=== PATIENT | male | born 1960 | race Caucasian/White ===

== ENCOUNTER 2020-06-28 11:04 | Outpatient (REF) | payer BC, SELFPAY ==
[2020-06-28 13:46] LABS: MANUAL DIFF FLAG NO
[2020-06-28 14:06] LABS: Eosinophils Absolute Auto 0.1 X10*3/uL (0.0-0.4); Eosinophils Percent Auto 1.9 % (0-4); Hematocrit 44.6 % (42-52); Hemoglobin 15.1 g/dl (14.0-18.0); Imm Gran Abs Auto 0.01 X10*3/uL (0.00-0.03); Imm Gran Pct Auto 0.3 % (0.0-0.4); Lymphocytes Absolute Auto 1.3 X10*3/uL (1.2-4.9); Lymphocytes Percent Auto 42.6 % (20-40); Mean Corpuscular HGB Conc 33.9 g/dl (31.0-36.0); Mean Corpuscular Hemoglobin 30.6 pg (27.0-33.0); Mean Corpuscular Volume 90.3 fL (80-98); Mean Platelet Volume 10.7 fL (9.4-12.4); Monocytes Absolute Auto 0.2 X10*3/uL (0.1-1.2); Monocytes Percent Auto 7.1 % (2-11); Neutrophils Absolute Auto 1.5 X10*3/uL (2.0-8.3); Neutrophils Percent Auto 47.1 % (45-73); Platelet Count 231 X10*3/uL (160-400); Red Blood Count 4.94 X10*6/uL (4.60-5.80); Red Cell Distribution Width 11.9 % (11.0-16.0); White Blood Count 3.1 X10*3/uL (4.8-10.8)
[2020-06-28 14:14] LABS: Alanine Aminotransferase 16 U/L (0-40); Albumin Level 4.3 g/dL (3.5-5.0); Alkaline Phosphatase 69 U/L (39-117); Anion Gap 12 (12-20); Aspartate Amino Transferase 18 U/L (5-37); Bilirubin Total 0.6 mg/dL (0.0-1.0); Blood Urea Nitrogen 13 mg/dL (9-16); Calcium 8.4 mg/dL (8.4-10.2); Chloride 105 mmol/L (96-108); Cholesterol 215 mg/dL; Estimated Glomerular Filt Rate > 60; Glucose Fasting 95 mg/dL (60-99); HDL Cholesterol 62 mg/dL; LDL Cholesterol Calculated 140 mg/dl; Potassium 4.5 mmol/l (3.3-5.1); Sodium 140 mmol/L (135-145); Triglycerides 69 mg/dL
[2020-06-28 14:20] LABS: Carbon Dioxide 28 mmol/L (22-29)
[2020-06-28 14:39] LABS: Prostate Specific Antigen 0.83 ng/mL (<0.05-4.0)
== END 2020-06-28 11:05 | disposition home or self-care (01) ==
LOC: HO.10HDL 11:04
PROVIDERS: Visit Provider Internal Medicine Medical Oncology
DX: K80.20 Calculus of gallbladder without cholecystitis without obstruction (principal); K21.9 Gastro-esophageal reflux disease without esophagitis; K29.70 Gastritis, unspecified, without bleeding; K81.9 Cholecystitis, unspecified
CPT/HCPCS: 36415; 80053; 80061; 84153; 85025

== ENCOUNTER 2020-07-13 08:26 | Outpatient (REF) | payer BC, SELFPAY ==
--- NOTE | 2020-07-13 | US_ITS ---
EXAMINATION: US ABDOMEN COMPLETE CLINICAL INFORMATION: Gallstones, cholecystitis. COMPARISON: None TECHNIQUE: Real-time imaging of the abdominal viscera. FINDINGS: PANCREAS: The pancreatic head and body are unremarkable. The tail is obscured by gas. ABDOMINAL AORTA: The proximal, mid, and distal segments are normal in caliber. INFERIOR VENA CAVA: Visualized portions are normal. LIVER: The liver is normal in size. The liver contour is normal. Parenchymal echogenicity is normal. Cysts are noted in the right lobe measuring 1.4 cm and 0.9 cm. There is no intrahepatic biliary duct dilatation seen. GALLBLADDER: Normal. The gallbladder is physiologically distended without evidence of stones, sludge, polyps, wall thickening or pericholecystic fluid. COMMON BILE DUCT: Normal in caliber measuring 0.4 cm in diameter. RIGHT KIDNEY: No hydronephrosis. No renal calculi. The kidney measures 11.8 cm in maximum dimension. At the midpole there is a hyperechoic focus measuring 0.4 x 0.7 x 0.5 cm which may represent an angiomyolipoma. LEFT KIDNEY: Normal. No hydronephrosis. No renal calculi or focal parenchymal lesions. The kidney measures 12.2 cm in maximum dimension. SPLEEN: Normal. The spleen measures 9.3 cm in maximum dimension. FREE FLUID: None. US/US abdomen complete IMPRESSION: 1. Unremarkable appearance of the gallbladder. No gallstones. No inflammatory changes. 2. Small cysts in the liver. 3. Probable angiomyolipoma at the midpole of the right kidney.
== END 2020-07-13 08:27 | disposition home or self-care (01) ==
LOC: HO.US 08:26
PROVIDERS: PCP Internal Medicine Medical Oncology; Visit Provider Internal Medicine Medical Oncology
DX: K80.20 Calculus of gallbladder without cholecystitis without obstruction (principal); K29.70 Gastritis, unspecified, without bleeding
CPT/HCPCS: 76700

== ENCOUNTER 2020-10-04 13:34 | Outpatient (REF) | payer BC, SELFPAY ==
[2020-10-04 14:24] LABS: MANUAL DIFF FLAG NO
[2020-10-04 14:28] LABS: Basophils Percent Auto 0.8 % (0-2); Eosinophils Absolute Auto 0.1 X10*3/uL (0.0-0.4); Eosinophils Percent Auto 1.8 % (0-4); Hematocrit 41.3 % (42-52); Hemoglobin 14.4 g/dl (14.0-18.0); Imm Gran Abs Auto 0.01 X10*3/uL (0.00-0.03); Imm Gran Pct Auto 0.3 % (0.0-0.4); Lymphocytes Absolute Auto 1.2 X10*3/uL (1.2-4.9); Lymphocytes Percent Auto 31.3 % (20-40); Mean Corpuscular HGB Conc 34.9 g/dl (31.0-36.0); Mean Corpuscular Hemoglobin 31.5 pg (27.0-33.0); Mean Corpuscular Volume 90.4 fL (80-98); Mean Platelet Volume 10.7 fL (9.4-12.4); Monocytes Absolute Auto 0.3 X10*3/uL (0.1-1.2); Monocytes Percent Auto 7.6 % (2-11); Neutrophils Absolute Auto 2.2 X10*3/uL (2.0-8.3); Neutrophils Percent Auto 58.2 % (45-73); Platelet Count 221 X10*3/uL (160-400); Red Blood Count 4.57 X10*6/uL (4.60-5.80); White Blood Count 3.8 X10*3/uL (4.8-10.8)
[2020-10-04 14:55] LABS: Potassium 4.5 mmol/L (3.3-5.1); Sodium 141 mmol/L (135-145)
[2020-10-04 14:56] LABS: Alanine Aminotransferase 22 U/L (0-40); Albumin Level 4.3 g/dL (3.5-5.0); Alkaline Phosphatase 62 U/L (39-117); Anion Gap 11 (12-20); Aspartate Amino Transferase 17 U/L (5-37); Bilirubin Total 0.7 mg/dL (0.0-1.0); Blood Urea Nitrogen 9 mg/dL (9-16); Calcium 9.1 mg/dL (8.4-10.2); Carbon Dioxide 30 mmol/L (22-29); Chloride 105 mmol/L (96-108); Estimated Glomerular Filt Rate > 60; Glucose Random 96 mg/dL (60-115); Total Protein 6.8 g/dL (6.5-8.0)
[2020-10-04 15:13] LABS: Erythrocyte Sedimentation Rate 2 MM/HR (0-15)
== END 2020-10-04 13:35 | disposition home or self-care (01) ==
LOC: HO.LAB 13:34
PROVIDERS: PCP Internal Medicine Medical Oncology; Visit Provider Internal Medicine Medical Oncology
DX: E78.5 Hyperlipidemia, unspecified (principal); E66.3 Overweight
CPT/HCPCS: 36415; 80053; 85025; 85652

== ENCOUNTER 2020-10-12 07:36 | Outpatient (REF) | payer BC, SELFPAY ==
--- NOTE | ~2020-10-12 | CT_ITS ---
EXAMINATION: CT ABDOMEN WITHOUT AND WITH CONTRAST CLINICAL INFORMATION: Abdominal pain. Renal mass. COMPARISON: Abdominal ultrasound dated 07/13/2020 TECHNIQUE: Contiguous axial thin section helical images of the abdomen were performed before and after the administration of 85 mL of Omnipaque 350 intravenous contrast. The data set was reformatted in the coronal and sagittal planes and reviewed on an independent workstation. This CT examination was performed using dose optimization techniques as appropriate, variously including the following: *Automated exposure control *Adjustment of mA and/or kV according to patient size (this includes techniques or standardized protocols for targeted exams where dose is matched to indication/reason for exam; i.e. extremities or head) *Use of iterative reconstruction technique DLP: 513 mGy-cm FINDINGS: LUNG BASES: Unremarkable. LIVER, GALLBLADDER, AND BILIARY TREE: Normal hepatic size and contour. Inferior right hepatic 1.5 cm simple cyst. Multiple additional hepatic hypodensities, too small to characterize. No enhancing hepatic parenchymal lesion or biliary ductal dilatation. No cholelithiasis. No gallbladder wall thickening or associated inflammatory change. Unremarkable CBD. PANCREAS: Unremarkable. No parenchymal lesion or associated enhancement. No inflammatory change or pancreatic ductal dilatation. SPLEEN: Unremarkable. ADRENAL GLANDS AND KIDNEYS: Unremarkable adrenal glands. Normal renal size, shape, and enhancement. There is a fat density lesion within the lateral midpole of the right kidney measuring up to 0.6 cm and consistent with the previously seen angiomyolipoma. Left mid/lower pole simple-appearing cyst. No renal stone. No hydronephrosis or proximal hydroureter. BOWEL LOOPS: The visualized upper abdominal bowel loops are unremarkable without wall thickening or associated inflammatory change. No upper abdominal bowel obstruction. PERITONEAL CAVITY: No upper abdominal free air or free fluid. No upper abdominal mass or organized fluid collection/abscess. LYMPH NODES: No significant upper abdominal lymphadenopathy. VASCULAR: No abdominal aortic dilatation or dissection. Scattered atherosclerotic calcifications. Unremarkable IVC. BONES: No lytic or blastic osseous lesion. CT/CT abdomen wo/w con IMPRESSION: 1. Redemonstration of an angiomyolipoma within the midpole of the right kidney, not significantly changed when compared to the prior ultrasound. Left renal simple-appearing cyst. No hydronephrosis or nephrolithiasis. 2. Inferior right hepatic simple cyst measuring 1.5 cm. Additional hepatic hypodensities, too small to characterize by CT examination, which also likely represent cysts. No intrahepatic or extrahepatic biliary ductal dilatation.
[2020-10-12] MEDS: iohexoL 350 MG/ML 100 ML INFUS..BTL IV (09:01)
== END 2020-10-12 07:37 | disposition home or self-care (01) ==
LOC: HO.CT 07:36
PROVIDERS: PCP Internal Medicine Medical Oncology; Visit Provider Internal Medicine Medical Oncology
DX: R10.9 Unspecified abdominal pain (principal)
CPT/HCPCS: 74170; Q9967

== ENCOUNTER 2021-06-27 09:51 | Outpatient (REF) | payer BC, SELFPAY ==
[2021-06-27 10:18] LABS: MANUAL DIFF FLAG NO
[2021-06-27 10:21] LABS: Eosinophils Absolute Auto 0.1 X10*3/uL (0.0-0.4); Eosinophils Percent Auto 3.1 % (0-4); Hematocrit 42.1 % (42.0-52.0); Hemoglobin 14.6 g/dl (14.0-18.0); Lymphocytes Absolute Auto 1.1 X10*3/uL (1.2-4.9); Lymphocytes Percent Auto 39.5 % (20-40); Mean Corpuscular HGB Conc 34.7 g/dl (31.0-36.0); Mean Corpuscular Hemoglobin 31.1 pg (27.0-33.0); Mean Corpuscular Volume 89.6 fL (80.0-98.0); Mean Platelet Volume 10.2 fL (9.4-12.4); Monocytes Absolute Auto 0.3 X10*3/uL (0.1-1.2); Monocytes Percent Auto 10.5 % (2-11); Neutrophils Absolute Auto 1.31 x10*3/uL (2.0-8.3); Neutrophils Percent Auto 45.9 % (45-73); Platelet Count 218 X10*3/uL (160-400); Red Cell Distribution Width 12.1 % (11.0-16.0); White Blood Count 2.9 X10*3/uL (4.8-10.8)
[2021-06-27 10:52] LABS: Alanine Aminotransferase 15 U/L (0-40); Albumin Level 4.2 g/dL (3.5-5.0); Alkaline Phosphatase 61 U/L (39-117); Anion Gap 11 (12-20); Aspartate Amino Transferase 18 U/L (5-37); Bilirubin Total 0.7 mg/dL (0.0-1.0); Blood Urea Nitrogen 12 mg/dL (9-16); Calcium 8.9 mg/dL (8.4-10.2); Carbon Dioxide 27 mmol/L (22-29); Chloride 106 mmol/L (96-108); Cholesterol 219 mg/dL; Estimated Glomerular Filt Rate > 60; Glucose Fasting 96 mg/dL (60-99); HDL Cholesterol 49 mg/dL; LDL Cholesterol Calculated 154 mg/dl; Magnesium 2.2 mg/dL (1.6-2.6); Potassium 4.4 mmol/L (3.3-5.1); Sodium 140 mmol/L (135-145); Total Protein 6.8 g/dL (6.5-8.0); Triglycerides 81 mg/dL
== END 2021-06-27 09:52 | disposition home or self-care (01) ==
LOC: HO.10HDL 09:51
PROVIDERS: Visit Provider Internal Medicine Medical Oncology
DX: E78.5 Hyperlipidemia, unspecified (principal); E66.9 Obesity, unspecified
CPT/HCPCS: 36415; 80053; 80061; 83735; 85025

== ENCOUNTER → 2021-07-04 13:32 | Outpatient (REF) | payer BC, SELFPAY ==
--- NOTE | 2021-07-04 13:41 | ECG_ITS ---
Hook-up date: 2021-07-04 15:01:00 Duration: 42:27:00 Test Indications: PALPITATIONS Medications: 222902 QRS complexes 27 Ventricular ectopics which represent <1 % of total QRS comp. 385 Supraventricular ectopics which represent <1 % of total QRS comp. * Paced QRS complexs which represent % of total QRS comp. VENTRICULAR ECTOPY 23 Isolated 0 Bigeminal Cycles 0 Couplets 1 Runs 4 Beats in Runs 4 Beats LONGEST at 182 BPM at 15:39:26 2021-07-04 4 Beats FASTEST at 182 BPM at 15:39:26 2021-07-04 SUPRAVENTRICULAR ECTOPY 186 Isolated 35 Couplets 34 Runs 129 Beats in Runs 9 Beats LONGEST at 168 BPM at 19:13:02 2021-07-04 3 Beats FASTEST at 220 BPM at 21:07:09 2021-07-04 HEART RATES 43 MIN at 07:35:14 2021-07-05 74 AVG 174 MAX at 21:07:09 2021-07-04 LONGEST RR 1.6240 secs at 01:31:24 2021-07-05 S-T LEVELS Channel 1 - 128 mm at 15:01:00 2021-07-04 - 128 mm at 15:01:00 2021-07-04 Channel 2 - 128 mm at 15:01:00 2021-07-04 - 128 mm at 15:01:00 2021-07-04 Channel 3 - 128 mm at 03:42:01 -- - 128 mm at 03:42:01 Basic rhythm Normal sinus rhythm No long pause or profound bradycardia Rare Premature ventricular complexes One 4 neat WCT at 182 bpm, could be NSVT or SVT with aberrancy Multiple short bursts of SVEs c/w SVT, longest 9 beats Patient reported events of hard beats correlated with NSR Referred By: Evgeny Molina Overread By: GUS ORELLANA MD
== END ==
LOC: HO.CARD 13:32
PROVIDERS: Visit Provider Internal Medicine Medical Oncology
DX: R00.2 Palpitations (principal)
CPT/HCPCS: 93225; 93226

== ENCOUNTER → 2022-11-14 08:27 | Outpatient (BNVA) | payer BC, SELFPAY | PROVIDERS: PCP Internal Medicine Medical Oncology; Visit Provider Physician Assistant | DX: Z13.89 Encounter for screening for other disorder (principal) ==

== ENCOUNTER 2023-02-13 07:20 | Day surgery (SDC) | payer BC, SELFPAY ==
--- NOTE | 2023-02-12 10:47 | HO.ANESPROP2 ---
Documented by User: Larisa Fowler NP 02/12/23 10:47 HPI - Anesthesia Eval Consult details Narrative: 62yo M for Colonoscopy [facility] Active Problems Active Problems: All Active Problems (Updated 11/14/22 @ 08:36 by Nhi Florse PA-C) Encounter for screening colonoscopy (Acute) Past Medical History Medical History (Updated 02/13/23 @ 08:36 by Fior Melchor, JANELL) Afib Anxiety Elevated cholesterol History of cardioversion DANIEL (obstructive sleep apnea) Family History Family History Father Lung cancer Emphysema lung Mother CVD (cardiovascular disease) Hyperlipemia Surgical History Surgical History History of ankle surgery Hx of colonoscopy Hx of oral surgery Social History Social History (Updated 11/14/22 @ 08:44 by Nhi Flores PA-C) Household Members Other:: single- Patient Tobacco Use Status: Never used Tobacco Meds Allergies Allergy/AdvReac Type Severity Reaction Status Date / Time No Known Allergies Allergy Verified 02/13/23 07:57 Home Medications Medication Instructions Recorded Confirmed Last Taken Type aspirin 81 mg chewable tablet 1 tab PO DAILY 11/14/22 02/13/23 02/12/23 History atorvastatin 20 mg tablet 20 mg PO DAILY 11/14/22 02/13/23 Unknown History metoprolol succinate 25 mg 25 mg PO DAILY 02/13/23 02/13/23 Unknown History tablet,extended release 24 hr sertraline 50 mg tablet 50 mg PO DAILY 02/13/23 02/13/23 Unknown History Exam Exam Date and Time: February 12, 2023 1047 Assessment and Plan Assessment Anesthesia Assessment: Chart Reviewed Documented by User: Hans Cuellar MD 02/13/23 17:58 HPI - Anesthesia Eval Consult details Narrative: 62yo M for Colonoscopy a fb s/p cardioversion [facility] Past Medical History Medical History (Updated 02/13/23 @ 08:36 by Fior Melchor RN) Afib Anxiety Elevated cholesterol History of cardioversion DANIEL (obstructive sleep apnea) Functional capacity: independent ambulation Family History Family History Father Lung cancer Emphysema lung Mother CVD (cardiovascular disease) Hyperlipemia Family history of problems with anesthesia: No Surgical History Surgical History History of ankle surgery Hx of colonoscopy Hx of oral surgery History of Problems with Anesthesia: No Social History Social History (Updated 11/14/22 @ 08:44 by Nhi Flores PA-C) Household Members Other:: single- Patient Tobacco Use Status: Never used Tobacco Meds Allergies Allergy/AdvReac Type Severity Reaction Status Date / Time No Known Allergies Allergy Verified 02/13/23 07:57 Home Medications Medication Instructions Recorded Confirmed Last Taken Type aspirin 81 mg chewable tablet 1 tab PO DAILY 11/14/22 02/13/23 02/12/23 History atorvastatin 20 mg tablet 20 mg PO DAILY 11/14/22 02/13/23 Unknown History metoprolol succinate 25 mg 25 mg PO DAILY 02/13/23 02/13/23 Unknown History tablet,extended release 24 hr sertraline 50 mg tablet 50 mg PO DAILY 02/13/23 02/13/23 Unknown History Exam Airway Mallampati Class: III Neck ROM: Full Loose/Missing/Broken Teeth: Yes Assessment and Plan Final Anesthetic Review Family History of Problems with Anesthesia: No History of Problems with Anesthesia: No NPO: Yes ASA Class: II Final Preanesthetic Review: Meds/Allgs Chart Reviewed, Consent Obtained/Reviewed and Anes Risks/Benef Reviewed Patient Risk: Intermediate Procedure Risk: Intermediate Anesthetic Plan Anesthetic Plan: MAC: Disposition: Standard PACU
[2023-02-13 07:57] VITALS: BMI 29.4
--- NOTE | 2023-02-13 08:12 | MHC.SHP ---
Pre-Procedural Eval Section A Date of Service: 02/13/23 Section B Chief Complaint: Encounter for screening for malignant neoplasm of Relevant Family History (Specify if Yes): No Relevant Social History: None Present Medications: see Short Stay Collaborative assessment Medical History: Significant History (Afib Anxiety Elevated cholesterol History of cardioversion DANIEL (obstructive sleep apnea)) History of Previous Operations: Relevant previous surgery/procedure and date(s) (History of ankle surgery Hx of colonoscopy Hx of oral surgery) Allergies: Allergies Allergy/AdvReac Type Severity Reaction Status Date / Time No Known Allergies Allergy Verified 02/13/23 07:57 Review of Systems Sugical H&P ROS: Negative: Constitution, Cardiovascular, Respiratory, Neurological, Psychiatric, Hem-Onc, Allergic/Immunologic, Gastrointestinal, Genitourinary, Musculoskeletal, Integumentary, Endocrine and Eyes/Ears/Nose/Throat Exam Surgical H&P Exam: Normal: HEENT, Normal: Heart, Normal: Lungs, Normal: Extremities, Normal: Abdomen, Normal: Skin and Normal: Neurological Plan Diagnosis/Plan: Unchanged I have reviewed the history and physical and performed a pertinent physical examination on my patient. No changes have occurred unless specified. Time Spent With Patient Time: Total time managing care of this patient today ____ minutes.
[2023-02-13 08:28] VITALS: BP 139/78; PULSE 60; RESP 15; TEMP 36.3; O2SAT 95
[2023-02-13] MEDS: Lactated Ringers 1,000 ML 100 ML IVCONT (08:34)
--- NOTE | 2023-02-13 09:14 | P.OP_ITS ---
Operative Note Operative Note Date of Service: 02/13/23 Narrative: Operative Information Procedure Description: Colonoscopy Indication: screening Anesthesia: MAC COLONOSCOPY Instrument: Olympus variable stiffness pediatric scope 190L Colonoscopy Monitoring: Vital signs and clinical assessment, continuous EKG monitoring, Pulse oximetry, Carbon Dioxide monitoring and blood pressure monitoring were done throughout the procedure. Colon withdrawal time was 8 minutes. Procedure: The patient was placed in the left lateral decubitis position and pre-procedure medications were administered. After a digital rectal examination of the ano-rectum, the video colonoscope was inserted into the rectum and advanced through the colon to the cecum/TI. The colonoscope was slowly withdrawn in a retrograde panoramic fashion and the colon mucosa was carefully examined including a retroflexed view of the rectum. Findings and interventions are described below. Procedure Difficulty: easy Findings: Terminal Ileum-normal Cecum:normal Ascending Colon: normal Transverse Colon - 5-7 mm sessile polyp removed with cold forceps Descending Colon:normal Sigmoid Colon: normal Rectum: Retroflexion with small internal hemorrhoids, grade I Anorectum - normal Colon preparation: [place] Bowel Preparation Scale Right colon; 2 Transverse colon: 2 Left colon; 2 (0 = Unprepared colon segment with mucosa not seen due to solid stool that cannot be cleared. 1 = Portion of mucosa of the colon segment seen, but other areas of the colon segment not well seen due to staining, residual stool and/or opaque liquid. 2 = Minor amount of residual staining, small fragments of stool and/or opaque liquid, but mucosa of colon segment seen well. 3 = Entire mucosa of colon segment seen well with no residual staining, small fragments of stool or opaque liquid) Impression and Post Procedure Diagnosis: polyp internal hemorrhoids Plan: High fiber diet leaflet Avoid straining at stool, epsom salts and sitz bath, anusol supps or cream Repeat Colonoscopy in 5-7 years if adenomatous polyp, 10 years if benign or earlier if clinically indicated Above findings were reviewed with the patient and relevant handouts were provided if indicated.
[2023-02-13 09:39] VITALS: BP 111/52; PULSE 61; RESP 16; TEMP 36.6; O2SAT 97
[2023-02-13 09:54] VITALS: BP 128/76; PULSE 57; RESP 18; TEMP 36.1; O2SAT 96
== END 2023-02-13 12:17 | disposition home or self-care (01) ==
PROVIDERS: PCP Internal Medicine Medical Oncology; Visit Provider Internal Medicine Gastroenterology
PROC: 0DJD8ZZ Inspection of Lower Intestinal Tract, Via Natural or Artificial Opening Endoscopic (ICD-10-PCS; CPT 45378; principal; 2023-02-13 09:20)
DX: Z12.11 Encounter for screening for malignant neoplasm of colon (principal); K63.5 Polyp of colon; K64.0 First degree hemorrhoids; I48.91 Unspecified atrial fibrillation; F41.1 Generalized anxiety disorder; E78.00 Pure hypercholesterolemia, unspecified; G47.33 Obstructive sleep apnea (adult) (pediatric); Z79.82 Long term (current) use of aspirin; Z79.899 Other long term (current) drug therapy
CPT/HCPCS: 45380; 88305

== ENCOUNTER → 2023-02-28 09:45 | Outpatient (BNVA) | payer BC, SELFPAY | PROVIDERS: PCP Internal Medicine Medical Oncology; Referring Provider Internal Medicine Medical Oncology; Visit Provider Physician Assistant ==